=== PATIENT | male | born 1990 | race Caucasian/White ===

== ENCOUNTER 2021-04-30 12:28 | Day surgery (SDC) | payer OTHER ==
[~2021-04-30] VITALS: Ht 182.9 cm; Wt 88.4 kg
[2021-04-30] MEDS ORDERED: LR 1,000 ML IV ONE (13:45)
[2021-04-30] MEDS ORDERED: LIDOCAINE 2% 100MG/5ML SDV (FOR ANES.) As Ordered ONE (13:47)
[2021-04-30] MEDS ORDERED: MIDAZOLAM INJ 2MG/2ML VIAL (J2250 PER 1MG) As Ordered ONE (13:47)
[2021-04-30] MEDS ORDERED: propofoL 200 MG/20 ML VIAL As Ordered ONE (13:47)
[2021-04-30] MEDS ORDERED: fentaNYL 100 MCG/2 ML INJECTION (J3010) As Ordered ONE (13:48)
[2021-04-30] MEDS: MORPHINE 4 MG/ML 1ML VIAL/SYRINGE (J2270) IV PRN ×2 (13:51→14:07)
[2021-04-30] MEDS ORDERED: CIPRODEX OTIC SUSP 7.5ML As Ordered ONE (14:58)
[2021-04-30] MEDS ORDERED: METOCLOPRAMIDE INJ 10MG/2ML VIAL (J2765 PER 1) IV PRN (15:20)
[2021-04-30] MEDS ORDERED: fentaNYL 100 MCG/2 ML INJECTION (J3010) IV PRN (15:20)
[2021-04-30] MEDS ORDERED: ONDANSETRON 4MG/2ML VIAL IV PRN (15:20)
[2021-04-30] MEDS ORDERED: PERCOCET 5MG/325MG TAB PO PRN (15:20)
[2021-04-30] MEDS ORDERED: LR 1,000 ML IV SCH ×2 (15:20)
[2021-04-30] MEDS ORDERED: dexameTHASONE 4 MG/ML 1ML VIAL (J1100 PER 1MG) As Ordered ONE (15:27)
[2021-04-30] MEDS ORDERED: KETOROLAC 60MG 2ML VIAL As Ordered ONE (15:27)
[2021-04-30] MEDS ORDERED: ONDANSETRON 4MG/2ML VIAL As Ordered ONE (15:27)
[2021-04-30 15:46] VITALS: BP 133/88
== END 2021-04-30 16:00 | disposition home or self-care (01) ==
LOC: M SDC 12:28
PROVIDERS: ATTEND Otolaryngology
DX: S00.452A Superficial foreign body of left ear, initial encounter (principal); X58.XXXA Exposure to other specified factors, initial encounter; Y92.89 Other specified places as the place of occurrence of the external cause; Y93.9 Activity, unspecified; Y99.9 Unspecified external cause status
CPT/HCPCS: 69205; 88300; J1100; J1885; J2250; J2270; J2405; J3010